=== PATIENT | male | born 1980 | race Caucasian/White ===

== ENCOUNTER 2017-12-01 17:00 | Outpatient (RCR) | payer OTHER, SELFPAY ==
--- NOTE | 2017-10-12 15:31 | HP.PTEVAL ---
Patient's Visit Information DWAYNE GARCIA is a 37 year old M referred to Physical Therapy by Gianna Pitt with a diagnosis of R humeral Fx. Date of Evaluation: 10/12/17 Physical Therapist: Phil Cross PT, - Visit Plan Frequency: 2-3x /Week Duration: 4-6 Weeks Plan: R shoulder stretching and strengthening, scap stab ex's, UBE, and HEP - Subjective Subjective: DOI: 08/15/17. Pt reports he fell down a flight of stairs at his grandma's which resulted in a fractured R humerus. Pt reports he stopped wearing his sling after one month. Pt reports he is doing much more now, but continues to notice pain with increased activity. Pt reports he is still limited and lacks ROM. Pt is R hand dominant. No PMHx. Pt had xrays taken last on 09/28/17 which revealed his shoulder was healing appropriayely and recomended he use the sling PRN. 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 Pt reports he is still limited with most IADL's and ADL's. Pt reports occasional sleep diff secondary to pain. 1/10 at rest, 5/10 at worst (reaching for an object) - Pain R shoulder Pain Intensity (Out of 10): 1 Pain Intensity Range: 5 - Objective Neuro: B UE sensation is WNL to light touch. B biceps reflex= 1/3. Palpation: No obvious deformity at this time. ROM: L shoulder flex= 165, abd= 165, ER= 75, IR WNL. R shoulder flex= 135, abd= 60, ER= 55, IR mod limited. MMT: R shoulder is grossly 2/5, while L shulder is 5/5 throughout - Goals Goal 1:: Decrease R shoulder pain x 50% to aid with IADL's Goal Time Frame: 4-6 Weeks Goal 2:: Increase R shoulder flex and abd ROM x 40 degrees to aid with overhead lifting. Goal Time Frame: 4-6 Weeks Goal 3:: Increase R shoulder strength x 1 grade to aid with IADL's Goal Time Frame: 4-6 Weeks Goal 4:: I with HEP Goal Time Frame: 4-6 Weeks - Rehabilitation Potential Physical Therapy Diagnosis: R shoulder pain, weakness, and limited ROM secondary to R humeral Fx Rehabilitation Potential: Good - Anticipated Interventions Patient/Client Instruction: Educate patient on: Condition, Plan of Care For the Purpose of:: To improve self management Therapeutic Exercise to Include: Strength training, Endurance training, Active ROM, Scapular Strength/Stabilization For the Purpose of:: To decrease pain, To increase ROM, To improve muscle performance and motor function Cryotherapy (ice pack, ice massage): Yes For the Purpose of:: To decrease pain Thank you for the opportunity to evaluate your patient. For Medicare and Medicare HMO plans, please review the plan of care and approve it. It will need to be FAXED BACK to us at [phone] for Medicare purposes. Please let me know if there are questions or concerns regarding this plan of care. Physician Signature: Date:
--- NOTE | 2017-11-08 15:13 | HP.PTREVAL_ITS ---
Gianna Pitt, It has been my pleasure to treat DWAYNE GARCIA over the last 4 visits for R humeral Fx. Please see the progress note below for an update on the physical therapy plan of care! Subjective: Pt reports his shoulder was really sore from PT yesterday. Better today. Objective/Function: R shoulder ROM: flex= 150, abd= 140, ER= 45. R shoulder MMT : 4-/5 throughout and painful with all testing. R shoulder pain ranges from 1-4 /10. Pt is progressing well with regards to strength and ROM. Plan Plan: Cont with R shoulder stretching and strengthening, scap stab ex's, UBE, and HEP. 2-3 x's per week for 4 weeks Goals Goal 1:: Decrease R shoulder pain x 50% to aid with IADL's Goal Time Frame: 4-6 Weeks Goal 2:: Increase R shoulder flex and abd ROM x 40 degrees to aid with overhead lifting. Goal Time Frame: 4-6 Weeks Goal 3:: Increase R shoulder strength x 1 grade to aid with IADL's Goal Time Frame: 4-6 Weeks Goal 4:: I with HEP Goal Time Frame: 4-6 Weeks Anticipated Interventions Patient/Client Instruction: Educate patient on: Condition, Plan of Care For the Purpose of:: To improve self management Therapeutic Exercise to Include: Strength training, Endurance training, Active ROM, Scapular Strength/Stabilization For the Purpose of:: To decrease pain, To increase ROM, To improve muscle performance and motor function Cryotherapy (ice pack, ice massage): Yes For the Purpose of:: To decrease pain Please do not hesitate to contact me at [phone] by phone or Fax: if you have questions or concerns regarding this new plan of care! Sincerely, Phil Cross, PT,
--- NOTE | 2017-12-01 17:00 | DT_ITS ---
This patient was seen during an EMR downtime November 28, 2017 - December 05, 2017. This patient may have a combination of paper and electronic documentation or all paper documentation. All documentation is viewable within the e-chart portion of [facility] for each patient visit.
--- NOTE | 2018-01-26 17:18 | HP.PT.NRP ---
HP - Discharge Summary (1) - Patient Information DWAYNE GARCIA was seen in my office for initial evaluation on 10/12/17. The following Plan of Care was established for this patient: Initial Frequency: 2-3x /Week Initial Duration: 4-6 Weeks - Anticipated Interventions Patient/Client Instruction: Educate patient on: Condition, Plan of Care For the Purpose of:: To improve self management Therapeutic Exercise to Include: Strength training, Endurance training, Active ROM, Scapular Strength/Stabilization For the Purpose of:: To decrease pain, To increase ROM, To improve muscle performance and motor function Cryotherapy (ice pack, ice massage): Yes For the Purpose of:: To decrease pain This patient was last seen in our office . Pertinent comments regarding their Physical therapy will appear below: Pt was last treated for his shoulder pain 38 days ago. Pt has not returned since that date, and is therefore discontinued at this time. At this point I will be discontinuing this patient from physical therapy. I would be happy to see this patient again in the future if found appropriate by the physician. Thank you! Phil Cross, PT,
== END 2017-12-01 19:00 | disposition home or self-care (01) ==
LOC: PT 17:00
PROVIDERS: Visit Provider Physician Assistant
DX: S42.254D Nondisplaced fracture of greater tuberosity of right humerus, subsequent encounter for fracture with routine healing (principal)
CPT/HCPCS: 97110; 97161; 97530